=== PATIENT | female | born 1970 | race Two or more races ===

== ENCOUNTER 2020-01-22 16:20 | Outpatient (CLI) | payer OTHER | END 2020-01-22 16:31 | disposition home or self-care (01) | LOC: RAD 16:20 | PROVIDERS: ATTEND Orthopaedic Surgery | DX: M25.512 Pain in left shoulder (principal); M25.551 Pain in right hip; M25.552 Pain in left hip; M25.561 Pain in right knee; M25.571 Pain in right ankle and joints of right foot ==

== ENCOUNTER 2023-05-17 13:01 | Outpatient (CLI) | payer OTHER | END 2023-05-17 13:06 | disposition home or self-care (01) | LOC: NUCLEAR 13:01 | DX: Z13.820 Encounter for screening for osteoporosis (principal) ==